=== PATIENT | female | born 1960 | race Caucasian/White ===

== ENCOUNTER 2025-02-08 17:18 | Emergency (ER) | payer BC ==
[~2025-02-08] VITALS: Ht 160 cm; Wt 57.9 kg
[2025-02-08 19:02] LABS: KETONE, URINE AUTO RFX TRACE mg/dL (NEGATIVE); LEUKOCYTE ESTERASE UR AUTO RFX 1+ (NEGATIVE); NITRITE, URINE AUTO RFX NEGATIVE (NEGATIVE); RBC, URINE AUTO RFX 1 /HPF (0-3); SQUAM EPITHELIAL CELL UR AURFX 0 /HPF (0-6); WBC, URINE AUTO RFX 4 /HPF (0-3)
[2025-02-08 20:25] LABS: BASO # 0.0 10^3/uL (0.0-0.2); BASO % 0.5 % (0.0-1.0); EOS # 0.0 10^3/uL (0.0-0.5); EOS % 0.1 % (0.0-3.0); LYMPH # 1.4 10^3/uL (1.5-5.0); LYMPH % 16.0 % (24.0-44.0); MONO # 0.3 10^3/uL (0.0-0.8); MONO % 3.7 % (2.0-8.0); NEUTROPHILS # 7.1 10^3/uL (1.5-8.5); NEUTROPHILS % 79.6 % (36.0-66.0); PLATELET COUNT, AUTOMATED 241 10^3/uL (150-450)
[2025-02-08 20:54] LABS: ALT/SGPT 22 U/L (7.0-40); AST/SGOT 25 U/L (<34); CALCIUM LEVEL 9.6 MG/DL (8.3-10.6); CARBON DIOXIDE LEVEL 29 MMOL/L (20-31); CHLORIDE LEVEL 104 MMOL/L (98-107); CREATININE FOR GFR 0.72 MG/DL (0.55-1.30); GLOMERULAR FILTRATION RATE > 90.0 (>45); POTASSIUM SERUM 4.4 MMOL/L (3.5-5.1); SODIUM LEVEL 144 MMOL/L (136-145)
[2025-02-08] MEDS ORDERED: ISOVUE-370 76% 100 ML VIAL As Ordered ONE (21:09)
[2025-02-08] MEDS ORDERED: TAMS1CAP17 PO (22:57)
[2025-02-08] MEDS ORDERED: METO10TA3 PO (22:57)
[2025-02-08] MEDS ORDERED: ACET-683 PO (22:57)
[2025-02-08] MEDS ORDERED: CEFD300C PO (22:58)
[2025-02-08] MEDS ORDERED: PHEN-372 PO (22:58)
[2025-02-08 23:13] VITALS: BP 140/67; TEMP 97.8; O2SAT 100
[2025-02-08] MEDS: TAMSULOSIN 0.4 MG CAP PO ONE (23:18)
[2025-02-08] MEDS: PHENAZOPYRIDINE 100 MG TAB PO ONE (23:18)
[2025-02-08] MEDS: CEFDINIR 300 MG CAP PO ONE (23:19)
== END 2025-02-08 23:29 | disposition home or self-care (01) ==
LOC: M ED 17:18
DX: N39.0 Urinary tract infection, site not specified (principal); N20.0 Calculus of kidney; N13.30 Unspecified hydronephrosis
CPT/HCPCS: 36415; 74177; 80048; 80076; 81001; 83690; 85025; 87086; 99284; Q9967